=== PATIENT | male | born 1985 | race Caucasian/White ===

== ENCOUNTER 2021-09-04 19:08 | Inpatient (IN) | payer MEDICAID, SELFPAY ==
[2021-09-04 19:26] VITALS: BMI 29.7
[2021-09-04 19:30] VITALS: BP 140/93; PULSE 85; RESP 17; TEMP 36.8; O2SAT 97
[2021-09-04] MEDS: nicotine 2 mg Gum BUCCAL (20:29)
[2021-09-04] MEDS: hyDROXYzine 25 mg Capsule 50 MG PO (20:29)
[2021-09-04] MEDS: trazodone 50 mg Tablet PO (20:29)
--- NOTE | 2021-09-04 20:59 | PC.NURSE ---
PT IS DIRECT ADMIT FROM [facility]. STATES THAT HE HAD A SUICIDE ATTEMPT YESTERDAY BY INJECTING 80 UNITS OF BOURBON. ETOH LEVEL AT HOSPITAL WAS 180. STATES THAT HE IS AN ALCOHOLIC AND DRINKS A 5TH DAILY ALONG WITH A FEW BEERS. STATES THAT HE WAS INPATIENT 1 WEEK AGO IN [place]. STATES HE FELT HE WAS DOING FINE BUT GUESSES HE WASN'T. REPORTS THAT HE HAS ALWAYS HAD INTERMITTENT SI THAT COMES OUT OF NOWHERE. DENIES THAT ANYTHING HAPPENED TO INITIATE THESE FEELINGS YESTERDAY. PT DENIES BEING ON ANY MEDICATIONS. DOES REPORT THAT HE WAS STARTING OUTPATIENT CARE WITH [facility]. HAS HX OF ANXIETY, TREMORS, SWEATS WHEN DETOXING IN THE PAST. DENIES ANY CURRENT SI. DENIES HI AND AVH WELL. NO SIGNS OF DETOX AT THIS TIME OUTSIDE OF ANXIETY.
[2021-09-04 22:00] VITALS: BP 140/93; PULSE 85; RESP 17; TEMP 36.8; O2SAT 97
[2021-09-05 06:00] VITALS: BP 136/87; PULSE 70; RESP 16; TEMP 36.8; O2SAT 98
[2021-09-05] MEDS: multivitamin therapeutic Tablet 1 TAB PO (09:02)
[2021-09-05] MEDS: thiamine 100 mg Tablet PO (09:02)
[2021-09-05] MEDS: folic acid 1 mg Tablet PO (09:02)
[2021-09-05] MEDS: hyDROXYzine 25 mg Capsule 50 MG PO (12:09)
[2021-09-05] MEDS: nicotine 2 mg Gum BUCCAL ×2 (12:09→17:08)
--- NOTE | 2021-09-05 13:40 | PC.NURSE ---
PRN MED PT GIVEN 50MG VISTARIL FOR STATED ANXIETY, WILL CONTINUE TO MONITOR.
[2021-09-05 14:00] VITALS: BP 130/79; PULSE 78; RESP 17; TEMP 36.7; O2SAT 96
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
[2021-09-05] MEDS: fluoxetine 20 mg Capsule PO (21:00)
[2021-09-05] MEDS: propranolol 20 mg Tablet PO (21:00)
[2021-09-05] MEDS: trazodone 50 mg Tablet PO (21:00)
[2021-09-05 21:11] VITALS: BP 145/88; PULSE 80; RESP 17; TEMP 36.8; O2SAT 98
--- NOTE | 2021-09-05 21:42 | PC.NURSE ---
PT REQUESTED TRAZADONE TO HELP HIM SLEEP.
[2021-09-06 06:00] VITALS: BP 129/76; PULSE 60; RESP 17; TEMP 36.7; O2SAT 97
[2021-09-06] MEDS: multivitamin therapeutic Tablet 1 TAB PO (09:00)
[2021-09-06] MEDS: thiamine 100 mg Tablet PO (09:00)
[2021-09-06] MEDS: folic acid 1 mg Tablet PO (09:00)
[2021-09-06] MEDS: propranolol 20 mg Tablet PO ×2 (09:00→14:08)
[2021-09-06] MEDS: fluoxetine 20 mg Capsule PO (09:00)
[2021-09-06] MEDS: nicotine 2 mg Gum BUCCAL ×2 (10:25→18:11)
[2021-09-06 12:58] VITALS: BP 130/78; PULSE 78; RESP 17; TEMP 36.7; O2SAT 97
--- NOTE | 2021-09-06 15:58 | W.PM.NPUPNS ---
Subjective NPU Subjective: Patient presents today reporting that he feels the medications might be helping. He reports that propranolol helped his anxiety for a little while after he takes it and he feels he might be feeling a little bit better on the Prozac. We agreed we would monitor for a couple days and make sure this is a steady improvement. Reports he is eating a little better still having some disturbed sleep. Otherwise he reports that he gladly started the medications. Mental Status Exam MSE Comments: This is an overweight versus obese white male with hospital scrubs on with adequate dress, grooming and eye contact. No abnormal movements psychomotor retardation. Cooperative with exam in no acute distress. Speech was slightly decreased rate and volume. Mood described as a little better, affect congruent. Thought process organized, thought content: patient denies suicidal or homicidal ideation, there were no delusions reported or noted, she denied any auditory or visual hallucinations. Attention and concentration were intact and memory appeared reliable but none were formally tested. She?s alert and oriented times three. Insight and judgment appeared fair and impulse control appeared fair Vitals/I&O/Wt Last Vital Signs Temp 98.0 F 09/06/21 12:58 Pulse 78 09/06/21 12:58 Resp 17 09/06/21 12:58 BP 130/78 09/06/21 12:58 Pulse Ox 97 09/06/21 12:58 Weight last 48 hrs Weight 102.058 kg Weight 102.058 kg A&P Assessment and plan (1) Anxiety disorder: Status: Acute (2) Alcohol withdrawal: Status: Acute (3) Alcohol use disorder, severe, dependence: Status: Acute (4) Major depressive disorder, recurrent: Status: Acute Plan This is a 35-year-old white male with a long history of alcohol dependence depression and anxiety who presents off of medication with continued active addiction but open to medication trial. 1.? Continue current medication.? Started Prozac 20 mg p.o. every morning and propranolol 20 mg p.o. 3 times daily as needed. 2.? Continue every 15 minute checks for safety. 3.? Encourage individual, group and milieu therapies. 4.? Encourage sober living treatment after discharge at the highest level of care to which he is willing to commit. Involuntary Hold Information 96 Hour Hold: 96 Hour Involuntary Admission: No Attestations NPU Medical Necessity Statement*: Inpatient hospitalization is medically necessary and the clinically appropriate intervention at this time. We will monitor medication to make changes as indicated. Likely length of stay 2-4 days. Coding Level of Care Code Acute Sales And Marketing Representative for g Fwd Diagnoses Anxiety disorder F41.9 Alcohol withdrawal F10.239 Alcohol use disorder, severe, dependence F10.20 Major depressive disorder, recurrent F33.9
[2021-09-06] MEDS: hyDROXYzine 25 mg Capsule 50 MG PO (20:05)
[2021-09-06] MEDS: trazodone 50 mg Tablet PO (20:05)
[2021-09-06 20:40] VITALS: BP 138/55; PULSE 76; RESP 18; TEMP 36.9; O2SAT 96
--- NOTE | 2021-09-06 21:03 | PC.NURSE ---
PRN PT REQUESTED MEDICATION TO HELP HIM SLEEP AND FOR ANXIETY. TRAZADONE AND VISTERIL WERE GIVEN. PT RETURNED TO DAY ROOM WITH PEERS
[2021-09-07 06:00] VITALS: BP 94/64; PULSE 62; RESP 17; TEMP 36.6; O2SAT 97
[2021-09-07] MEDS: thiamine 100 mg Tablet PO (08:36)
[2021-09-07] MEDS: nicotine 2 mg Gum BUCCAL ×2 (08:37→14:11)
[2021-09-07] MEDS: multivitamin therapeutic Tablet 1 TAB PO (08:37)
[2021-09-07] MEDS: fluoxetine 20 mg Capsule PO (08:37)
[2021-09-07] MEDS: folic acid 1 mg Tablet PO (08:37)
[2021-09-07] MEDS: propranolol 20 mg Tablet PO (08:37)
[2021-09-07 13:38] VITALS: BP 126/84; PULSE 75; RESP 16; TEMP 36.6; O2SAT 96
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
[2021-09-07 14:25] VITALS: BP 126/84; PULSE 75; RESP 16; TEMP 36.6; O2SAT 96
== END 2021-09-07 14:30 | disposition home or self-care (01) | DRG 885 ==
PROVIDERS: Admitting Provider Psychiatry & Neurology Psychiatry; Visit Provider Psychiatry & Neurology Psychiatry
DX: F33.9 Major depressive disorder, recurrent, unspecified (principal); F10.239 Alcohol dependence with withdrawal, unspecified; R45.851 Suicidal ideations; F10.229 Alcohol dependence with intoxication, unspecified; Y90.6 Blood alcohol level of 120-199 mg/100 ml; Z91.51 Personal history of suicidal behavior; F17.210 Nicotine dependence, cigarettes, uncomplicated; Z81.1 Family history of alcohol abuse and dependence; Z81.8 Family history of other mental and behavioral disorders
CPT/HCPCS: 97165